=== PATIENT | female | born 1960 | race Caucasian/White ===

== ENCOUNTER 2017-10-29 15:50 | Outpatient (CLI) | payer BC, OTHER | END 2017-10-29 15:51 | disposition home or self-care (01) | LOC: BICMAMMO 15:50 | PROVIDERS: ATTEND Family Medicine | DX: Z12.31 Encounter for screening mammogram for malignant neoplasm of breast (principal); R92.1 Mammographic calcification found on diagnostic imaging of breast | CPT/HCPCS: 77063; 77067 ==

== ENCOUNTER 2018-05-28 11:19 | Emergency (ER) | payer BC, OTHER ==
--- NOTE | 2018-05-28 13:21 | ULT ---
ULTRASOUND WITH DOPPLER DUPLEX VENOUS LOWER EXTREMITY LEFT: HISTORY: 58-year-old female with left lower extremity pain and edema. TECHNIQUE: Color flow Doppler, spectral waveform analysis of pulsed Doppler, and esparza-scale imaging with corona freddie and augmentation, were used to evaluate the left common femoral, femoral, popliteal, posterior t ibial, and superficial femoral, veins; and the proximal portions of the profunda femoral and greater saphenous, veins. FINDINGS: There is normal compressibility, demonstration of blood flow by color Doppler and pulsed Doppler, and response to augmentation, in all interrogated veins. IMPRESSION: Negative. No deep vein thrombosis in the left lower extremity. jn[] POS: LYNNE
== END 2018-05-28 13:54 | disposition home or self-care (01) ==
LOC: ERS 11:19
DX: I83.92 Asymptomatic varicose veins of left lower extremity (principal); I49.9 Cardiac arrhythmia, unspecified; Z86.718 Personal history of other venous thrombosis and embolism

== ENCOUNTER 2018-12-20 15:57 | Outpatient (CLI) | payer BC, OTHER ==
--- NOTE | 2018-12-20 16:17 | MMO ---
Bilateral MAMMO Bilat Screen [facility]. CLINICAL HISTORY: Patient is 58 years old and is seen for screening. The patient has no family history of breast cancer. The patient has no personal history of cancer. VIEWS: The views performed were: bilateral craniocaudal with tomosynthesis and bilateral mediolateral oblique with tomosynthesis. FILMS COMPARED: The present examination has been compared to prior imaging studies performed at [facility] on 09/12/2014, 10/04/2015, 10/08/2016 and 10/29/2017. MAMMOGRAM FINDINGS: The breasts are heterogeneously dense, which could obscure a lesion on mammography. There are no suspicious masses, suspicious calcifications, or new areas of architectural distortion. IMPRESSION: THERE IS NO MAMMOGRAPHIC EVIDENCE OF MALIGNANCY. A ROUTINE FOLLOW-UP MAMMOGRAM IN 1 YEAR IS RECOMMENDED. THE RESULTS OF THIS EXAM WERE SENT TO THE PATIENT. ACR BI-RADS Category 1 - Negative MAMMOGRAPHY NOTE: 1. A negative mammogram report should not delay a biopsy if a dominant of clinically suspicious mass is present. 2. Approximately 10% to 15% of breast cancers are not detected by mammography. 3. Adenosis and dense breasts may obscure an underlying neoplasm. Reported by: ANANT FLEMING MD Electonically Signed: [id number]
== END 2018-12-20 15:58 | disposition home or self-care (01) ==
LOC: BICMAMMO 15:57
PROVIDERS: ATTEND Internal Medicine
DX: Z12.31 Encounter for screening mammogram for malignant neoplasm of breast (principal)
CPT/HCPCS: 77063; 77067

== ENCOUNTER 2019-12-30 07:58 | Outpatient (CLI) | payer BC, OTHER ==
--- NOTE | 2019-12-30 08:48 | MMO ---
Bilateral MAMMO Bilat Screen [facility]. CLINICAL HISTORY: Patient is 59 years old and is seen for screening. The patient has no family history of breast cancer. The patient has no personal history of cancer. VIEWS: The views performed were: bilateral craniocaudal with tomosynthesis; bilateral mediolateral oblique with tomosynthesis; and bilateral exaggerated craniocaudal. FILMS COMPARED: The present examination has been compared to prior imaging studies performed at [facility] on 10/04/2015, 10/08/2016, 10/29/2017 and 12/20/2018. This study has been interpreted with the assistance of computer-aided detection. MAMMOGRAM FINDINGS: There are scattered fibroglandular densities. There are stable benign appearing calcifications seen in both breasts. There are no suspicious masses, suspicious calcifications, or new areas of architectural distortion. IMPRESSION: THERE IS NO MAMMOGRAPHIC EVIDENCE OF MALIGNANCY. A ROUTINE FOLLOW-UP MAMMOGRAM IN 1 YEAR IS RECOMMENDED. THE RESULTS OF THIS EXAM WERE SENT TO THE PATIENT. ACR BI-RADS Category 2 - Benign finding MAMMOGRAPHY NOTE: 1. A negative mammogram report should not delay a biopsy if a dominant of clinically suspicious mass is present. 2. Approximately 10% to 15% of breast cancers are not detected by mammography. 3. Adenosis and dense breasts may obscure an underlying neoplasm. Reported by: MALIKA DEVI MD Electonically Signed: [id number]
== END 2019-12-30 07:59 | disposition home or self-care (01) ==
LOC: BICMAMMO 07:58
PROVIDERS: ATTEND Family Medicine
DX: Z12.31 Encounter for screening mammogram for malignant neoplasm of breast (principal)
CPT/HCPCS: 77063; 77067

== ENCOUNTER 2020-06-29 12:41 | Inpatient (IN) | payer BC, OTHER ==
[~2020-06-29 12:41] MED LIST: Iopamidol-370 76% 500 ML 1 ML ONE
[2020-06-29] MEDS ORDERED: Magnesium 2 GM/50 ML BAG (IN WATER) ONE (13:09)
[2020-06-29] MEDS ORDERED: Diltiazem 125 MG/25 ML ONE ×3 (13:09→13:19)
[2020-06-29] MEDS ORDERED: Digoxin 0.5 MG/2 ML AMP ONE (13:14)
[2020-06-29] MEDS ORDERED: Aspirin Chewable 81 MG TAB ONE (13:14)
--- NOTE | 2020-06-29 13:26 | RAD ---
Exam: Chest one view HISTORY:Dyspnea. Tachycardia. Comparison: 07/29/2015 FINDINGS: Cardiac silhouette: Normal Aorta: Unremarkable Pulmonary vessels: Normal Costophrenic angles: Bibasilar pleural effusions LUNGS: Bibasilar opacities Pneumothorax: None Osseous abnormalities: None IMPRESSION: Bibasilar pleural-parenchymal changes
[2020-06-29 13:28] LABS: #Basophils 0.1 thou/uL (0.0-0.2); #Eosinphils 0.1 thou/uL (0.0-0.7); #Lymphocytes 1.4 thou/uL (1.20-3.40); #Monocytes 0.6 thou/uL (0.11-0.59); #Neutrophils 3.6 thou/uL (1.40-6.50); %Eosinophils 2.3 % (0.0-10.0); %Lymphocytes 24.3 % (21.0-51.0); %Monocytes 9.7 % (0.0-10.0); %Neutrophils 62.7 % (42.0-75.0); Hemoglobin 13.2 g/dL (12.0-16.0); Mean Corpuscular HGB CONC 33.9 g/dL (32.0-36.0); Mean Corpuscular Hemoglobin 31.4 pg (27.0-31.0); Mean Corpuscular Volume 92.7 fL (78.0-98.0); Mean Platelet Volume 7.5 fL (7.4-10.4); Platelet Count 206 thou/uL (130-400); RBC Distribution Width 11.8 % (11.5-14.5); White Blood Cell (WBC) Count 5.7 thou/uL (4.8-10.8)
[2020-06-29 13:46] LABS: ALT (SGPT) 117 U/L (8-55); AST (SGOT) 64 U/L (5-34); Albumin 4.2 g/dL (3.5-5.0); Alkaline Phosphatase 117 U/L (40-110); Anion Gap 15 mmol/L (10-20); BUN (Urea Nitrogen) 9 mg/dL (9.8-20.1); Bilirubin, Total 0.5 mg/dL (0.2-1.2); CK (CPK) 96 U/L (29-168); Calc. Creatinine Clearance 0 mL/min (70-130); Calcium 9.3 mg/dL (7.8-10.44); Carbon Dioxide 21 mmol/L (22-29); Chloride 106 mmol/L (98-107); Globulin 3.5 g/dL (2.4-3.5); Glucose 116 mg/dL (70-105); Lipase 37 U/L (8-78); Potassium 3.3 mmol/L (3.5-5.1); Protein, Total 7.7 g/dL (6.0-8.3); Sodium 139 mmol/L (136-145)
[2020-06-29 13:50] LABS: CKMB 1.9 ng/mL (0-6.6)
[2020-06-29] MEDS ORDERED: Enoxaparin Sodium 80 MG/0.8 ML SYRINGE ONE (14:50)
--- NOTE | 2020-06-29 15:06 | CT ---
CT ANGIOGRAM CHEST WITH CONTRAST: 06/29/20 HISTORY: Chest pain. COMPARISON: Radiograph of chest same day. FINDINGS: CT angiogram chest performed after the intravenous administration of contrast. CT rendering provided. No proximal segmental pulmonary arterial filling defect. The pulmonary trunk and left and right main pulmonary arteries are essentially normal. Large bilateral layering pleural effusions. Mild compressi ve atelectasis of both lung bases. Mild interstitial thickening both upper lobes. 8 mm nodule right m iddle lobe. No abnormal pleural enhancement. No significant mediastinal adenopathy. Thoracic spine is intact. Sternum and manubrium are intact. Celiac trunk and severe mesenteric arteri es are patent. Healing right anterior 9th and 10th rib fractures. No acute displaced rib fracture. IMPRESSION: 1. No pulmonary embolism. 2. Large bilateral pleural effusions and mild pulmonary edema. 3. Healing right anterior 9th and 10th rib fractures. 4. 8 mm pulmonary nodule involving the pleura right middle lobe has not significantly grown sinc e 2012 indicating benignity. POS: HOME
[2020-06-29 15:50] LABS: SARS-CoV-2 NAA Rapid Test Not Detected (NotDetected)
--- NOTE | 2020-06-29 16:01 | PDOC.HHP ---
Hospitalist HPI Palpitations History of Present Illness: Ms. Foley is a 60F with a PMHx of a provoked DVT who presents to the ER for 3 days of weakness, malaise, and palpitations. Patient reports that she has felt fatigued run-down and at times short of breath. She has noticed a fluttering feeling in her chest occasionally. She denies any chest pain. Pt follows with Dr. Brito and has a history of brief episode of a-fib on a 30 day holter monitor. She is not on any anticoagulation. SHe denies any prior episodes to this. In the ER initial vital signs 137/81, 81, 94% on room air. EKG shows atrial fibrillation with rapid ventricular rate. Patient's heart rate initially in the 140s. Initial troponin 0 0.015. WBC 5.7 H/H 13.2/38.9. Sodium 139, potassium 3.3. AST/ALT 64/117, alk phos 117. D-dimer elevated CTA negative for pulmonary embolism. Chest x-ray did show mild bilateral pleural effusions and vascular congestion. Patient was started on 1 mg/kg of Lovenox in the emergency room. To control her rate she started on a diltiazem drip at 15, and also received a dose of digoxin. Allergies/Adverse Reactions: Allergy/AdvReac Type Severity Reaction Status Date / Time No Known Drug Allergies Allergy Verified 07/31/19 02:23 Comments: On home pantoprazole Past History: PMHx: Provoked DVT PSHx: Carpal tunnel surgery Endometriosis FHx: No pertinent family history Social: Denies tobacco, alcohol or drug use. Hospitalist HPI ROS Constitutional: reports: weakness, malaise. denies: fever, chills, sweats, other Eyes: denies: pain, vision change, conjunctivae inflammation, eyelid inflammation, redness, other ENT: denies: ear pain, ear discharge, nose pain, nose discharge, nose congestion, mouth pain, mouth swelling, throat pain, throat swelling, other Respiratory: reports: shortness of breath. denies: cough, dry, hemoptysis, SOB with excertion, pleuritic pain, sputum, wheezing, other Cardiovascular: reports: palpitations. denies: chest pain, orthopnea, paroxysma l noc. dyspnea, edema, light headedness, other Gastrointestinal: denies: nausea, vomiting, abdominal pain, diarrhea, constipation, melena, hematochezia, other Genitourinary: denies: dysuria, frequency, incontinence, hematuria, retention, other Musculoskeletal: denies: neck pain, shoulder pain, arm pain, back pain, hand pain, leg pain, foot pain, other Skin: denies: rash, lesions, shonda, bruising, other Neurological: denies: weakness, numbness, incoordination, change in speech, confusion, seizures, other Hospitalist Exam General Appearance: NAD, awake alert Eye: PERRL, anicteric sclera ENT: normocephalic atraumatic, no oropharyngeal lesions, moist mucosa Neck: supple, symmetric, no JVD, no thyromegaly, no lymphadenopathy, no carotid bruit Heart: no murmur, no gallops, no rubs, normal peripheral pulses Heart - other findings: Irregularly irregular Respiratory: CTAB, no wheezes, no rales, no ronchi, normal chest expansion, no tachypnea, normal percussion Gastrointestinal: soft, non-tender, non-distended, normal bowel sounds, no palpable masses, no hepatomegaly, no splenomegaly, no bruit Extremities: no cyanosis, no clubbing, no edema Skin: normal turgor, no lesions, no rashes Neurological: cranial nerve grossly intact, normal sensation to touch, no weakness, no focal deficits, no new deficit Musculoskeletal: normal tone, normal strength, no muscle wasting Psychiatric: normal affect, normal behavior, A&O x 3 Hospitalist Results Result Diagrams: 06/29/20 13:11 06/29/20 13:06 Lab results: Laboratory Last Values WBC 5.7 thou/uL (4.8-10.8) 06/29/20 13:11 RBC 4.20 mill/uL (4.20-5.40) 06/29/20 13:11 Hgb 13.2 g/dL (12.0-16.0) 06/29/20 13:11 Hct 38.9 % (36.0-47.0) 06/29/20 13:11 MCV 92.7 fL (78.0-98.0) 06/29/20 13:11 MCH 31.4 pg (27.0-31.0) H 06/29/20 13:11 MCHC 33.9 g/dL (32.0-36.0) 06/29/20 13:11 RDW 11.8 % (11.5-14.5) 06/29/20 13:11 Plt Count 206 thou/uL (130-400) 06/29/20 13:11 MPV 7.5 fL (7.4-10.4) 06/29/20 13:11 Neutrophils % 62.7 % (42.0-75.0) 06/29/20 13:11 Lymphocytes % 24.3 % (21.0-51.0) 06/29/20 13:11 Monocytes % 9.7 % (0.0-10.0) 06/29/20 13:11 Eosinophils % 2.3 % (0.0-10.0) 06/29/20 13:11 Basophils % 1.0 % (0.0-1.0) 06/29/20 13:11 Neutrophils # 3.6 thou/uL (1.40-6.50) 06/29/20 13:11 Lymphocytes # 1.4 thou/uL (1.20-3.40) 06/29/20 13:11 Monocytes # 0.6 thou/uL (0.11-0.59) H 06/29/20 13:11 Eosinophils # 0.1 thou/uL (0.0-0.7) 06/29/20 13:11 Basophils # 0.1 thou/uL (0.0-0.2) 06/29/20 13:11 D-Dimer 1.55 *mcg/mL (0.27-0.43) H 06/29/20 13:11 Sodium 139 mmol/L (136-145) 06/29/20 13:06 Potassium 3.3 mmol/L (3.5-5.1) L 06/29/20 13:06 Chloride 106 mmol/L (98-107) 06/29/20 13:06 Carbon Dioxide 21 mmol/L (22-29) L 06/29/20 13:06 Anion Gap 15 mmol/L (10-20) 06/29/20 13:06 BUN 9 mg/dL (9.8-20.1) L 06/29/20 13:06 Creatinine 0.86 mg/dL (0.6-1.1) 06/29/20 13:06 Estimated GFR (MDRD) 68 06/29/20 13:06 Glucose 116 mg/dL (70-105) H 06/29/20 13:06 Calcium 9.3 mg/dL (7.8-10.44) 06/29/20 13:06 Magnesium 2.0 mg/dL (1.6-2.6) 06/29/20 13:11 Total Bilirubin 0.5 mg/dL (0.2-1.2) 06/29/20 13:06 AST 64 U/L (5-34) H 06/29/20 13:06 ALT 117 U/L (8-55) H 06/29/20 13:06 Alkaline Phosphatase 117 U/L (40-110) H 06/29/20 13:06 Creatine Kinase 96 U/L (29-168) 06/29/20 13:06 CK-MB (CK-2) 1.9 ng/mL (0-6.6) 06/29/20 13:11 Troponin I 0.015 ng/mL (< 0.028) 06/29/20 13:11 B-Natriuretic Peptide 215.5 pg/mL (0-100) H 06/29/20 13:11 Serum Total Protein 7.7 g/dL (6.0-8.3) 06/29/20 13:06 Albumin 4.2 g/dL (3.5-5.0) 06/29/20 13:06 Globulin 3.5 g/dL (2.4-3.5) 06/29/20 13:06 Albumin/Globulin Ratio 1.2 g/dL (1.2-2.2) 06/29/20 13:06 Lipase 37 U/L (8-78) 06/29/20 13:06 Influenza A RNA INAAT Not Detected (NotDetected) 06/29/20 14:58 Influenza B RNA INAAT Not Detected (NotDetected) 06/29/20 14:58 SARS-CoV-2 Rap RNA(RT-PCR) Not Detected (NotDetected) 06/29/20 14:58 Hospitalist H&P A/P Plan: Atrial fibrillation with rapid ventricular rate Patient with history of atrial fibrillation not on anticoagulation or any rate control medicine. Follows with Dr. Delatorre. Patient's not been hospitalized for this previously. Patient has 3 days of weakness dyspnea and palpitations. Found to be in A. fib with ventricular rate in the 140s on presentation. Patient started on diltiazem drip in the emergency room and additionally received doses of digoxin to control her rate. Currently in the 80s to 90s. D- dimer elevated, CTA was negative for PE but did show small bilateral pleural effusions. Chest x-ray also with small bilateral pleural effusions and pulmonary vascular congestion. We will continue diltiazem drip, anticoagulation with Lovenox and consult cardiology. Plan Diltiazem drip Therapeutic Lovenox TSH, magnesium Telemetry monitoring Cardiology consult recommendations appreciated Bilateral pleural effusions Chest x-ray shows bilateral pleural effusions. Patient saturating well on room air and is in no respiratory distress. Suspect mild heart failure. Will pursue echocardiogram to further assess. Patient has no history of heart failure and is not on any home medications. Patient with mild lower extremity swelling on exam. No appreciable JVD. Will diurese with Lasix. Plan Echocardiogram Lasix 20 mg IV Telemetry monitoring Monitor respiratory status. Hypokalemia Potassium 3.3. Will replete and continue monitor. Will also check magnesium and maintain potassium above 4 and magnesium above 2. Transamanitis AST/ALT 64/117. Alk phos 117. No abdominal pain, N/V. Chronic diarrhea. Will obtain hepatitis panel and continue to trend. Chronic diarrhea Patient reports medical history of chronic intermittent diarrhea. Symptoms mildly improved on Protonix which he recently restarted. Advised patient to do a trial of lactose-free diet and follow-up with her primary care provider. We will continue Protonix during admission. DVT prophylaxistherapeutic Lovenox Full code Case discussed with attending physician, Dr. Latif.
[2020-06-29] MEDS ORDERED: Acetaminophen 650 MG Suppository PR PRN (16:08)
[2020-06-29] MEDS ORDERED: Acetaminophen 325 MG TAB PO PRN (16:08)
[2020-06-29] MEDS ORDERED: Furosemide 20 MG/2 ML VIAL SLOW IVP SCH (16:30)
[2020-06-29 16:45] LABS: Hemoglobin A1c 5.6 % (4.0-6.0)
[2020-06-29 16:53] LABS: Cardiac Risk 2.5 (Less than 4.5)
[2020-06-29] MEDS ORDERED: Potassium Chloride 20 MEQ TAB PO SCH (17:00)
[2020-06-29 17:17] LABS: CKMB 1.9 ng/mL (0-6.6)
[2020-06-29 19:08] VITALS: BMI 23.0
[2020-06-29] MEDS: Metoprolol Tartrate 25 MG TAB PO SCH (20:59)
[2020-06-29] MEDS: Diltiazem 125 MG in Sodium Chloride 0.9% 100 ML IVPB SCH (21:00)
[2020-06-29] MEDS ORDERED: Metoprolol Tartrate 25 MG TAB PO SCH (21:00)
[2020-06-29 22:57] LABS: HBCM Index 0.16 S/CO (0-0.79); HBSAg Index 0.24 S/CO (0-0.99); Hep A IgM AB Non-Reactive (NonReactive); Hep A IgM S/CO 0.12 S/CO (0-0.79); Hep B Surf Ag Non-Reactive S/CO (NonReactive); Hep C IgG Ab Non-Reactive (NonReactive); Hep C Index 0.47 S/CO (0-0.79); Hepatitis B Core IgM Abs Non-Reactive (NonReactive)
[2020-06-30 04:34] LABS: #Basophils 0.1 thou/uL (0.0-0.2); #Eosinphils 0.3 thou/uL (0.0-0.7); #Lymphocytes 1.5 thou/uL (1.20-3.40); #Monocytes 0.5 thou/uL (0.11-0.59); #Neutrophils 2.2 thou/uL (1.40-6.50); %Basophils 1.5 % (0.0-1.0); %Eosinophils 6.1 % (0.0-10.0); %Lymphocytes 32.9 % (21.0-51.0); %Monocytes 10.9 % (0.0-10.0); %Neutrophils 48.6 % (42.0-75.0); Hemoglobin 12.1 g/dL (12.0-16.0); Mean Corpuscular HGB CONC 32.9 g/dL (32.0-36.0); Mean Corpuscular Hemoglobin 30.1 pg (27.0-31.0); Mean Corpuscular Volume 91.5 fL (78.0-98.0); Mean Platelet Volume 7.2 fL (7.4-10.4); Platelet Count 218 thou/uL (130-400); Red Blood Cell (RBC) Count 4.02 mill/uL (4.20-5.40); White Blood Cell (WBC) Count 4.5 thou/uL (4.8-10.8)
[2020-06-30] MEDS: Diltiazem 125 MG in Sodium Chloride 0.9% 100 ML IVPB SCH (04:42)
[2020-06-30 04:46] LABS: Anion Gap 11 mmol/L (10-20); BUN (Urea Nitrogen) 8 mg/dL (9.8-20.1); Calc. Creatinine Clearance 86 mL/min (70-130); Calcium 8.7 mg/dL (7.8-10.44); Carbon Dioxide 26 mmol/L (22-29); Chloride 109 mmol/L (98-107); Glucose 99 mg/dL (70-105); Potassium 3.8 mmol/L (3.5-5.1); Sodium 142 mmol/L (136-145)
[2020-06-30] MEDS: Furosemide 20 MG/2 ML VIAL SLOW IVP SCH (09:04)
[2020-06-30] MEDS: Metoprolol Tartrate 25 MG TAB PO SCH ×2 (09:04→21:14)
--- NOTE | 2020-06-30 10:55 | PDOC.HOSPP ---
- Subjective Encounter Date: 06/30/20 Encounter Time: 08:15 Subjective: Patient reports she feels better than yesterday; denies overnight events - Objective Vital Signs & Weight: Vital Signs (12 hours) Temp Pulse Resp BP Pulse Ox 06/30/20 07:27 98.1 F 67 18 118/64 97 06/30/20 04:30 73 106/63 06/30/20 04:00 98.2 F 72 18 94 L Weight Weight 72.7 kg I&O: 06/29/20 06/30/20 07/01/20 06:59 06:59 06:59 Intake Total 223 Output Total 1500 Balance -1277 Result Diagrams: 06/30/20 04:13 06/30/20 04:13 Hospitalist ROS - Review of Systems Constitutional: denies: fever, chills, sweats, weakness, malaise, other Eyes: denies: pain, vision change, conjunctivae inflammation, eyelid inflammation, redness, other ENT: denies: ear pain, ear discharge, nose pain, nose discharge, nose congestion, mouth pain, mouth swelling, throat pain, throat swelling, other Respiratory: denies: cough, dry, shortness of breath, hemoptysis, SOB with excertion, pleuritic pain, sputum, wheezing, other Cardiovascular: reports: palpitations Gastrointestinal: reports: diarrhea Genitourinary: denies: dysuria, frequency, incontinence, hematuria, retention, other Musculoskeletal: denies: neck pain, shoulder pain, arm pain, back pain, hand pain, leg pain, foot pain, other Skin: denies: rash, lesions, shonda, bruising, other Neurological: denies: weakness, numbness, incoordination, change in speech, confusion, seizures, other - Medication Medications: Active Medications Generic Name Dose Route Start Last Admin Trade Name Freq PRN Reason Stop Dose Admin Acetaminophen 650 mg 06/29/20 16:08 06/29/20 20:59 Acetaminophen 325 Mg Tab PO 650 mg Q4H PRN Administration Headache/Fever/Mild Pain (1-3) Furosemide 20 mg 06/30/20 09:00 06/30/20 09:04 Furosemide 20 Mg/2 Ml Vial SLOW IVP 20 mg DAILY ALICJA Administration Diltiazem HCl 125 mg/ Sodium 125 mls @ 15 mls/hr 06/29/20 16:15 06/30/20 04:42 Chloride IVPB 125 mls INF ALICJA Administration Protocol 15 MG/HR Metoprolol Tartrate 25 mg 06/29/20 21:00 06/30/20 09:04 Metoprolol Tartrate 25 Mg Tab PO 25 mg BID ALICJA Administration Pantoprazole Sodium 40 mg 06/30/20 09:00 06/30/20 09:04 Pantoprazole 40 Mg Tab PO 40 mg DAILY ALICJA Administration Hospitalist Exam Vitals: Vital Signs (12 hours) Temp Pulse Resp BP Pulse Ox 06/30/20 07:27 98.1 F 67 18 118/64 97 06/30/20 04:30 73 106/63 06/30/20 04:00 98.2 F 72 18 94 L Weight Weight 72.7 kg General Appearance: NAD, awake alert Eye: PERRL ENT: normocephalic atraumatic Neck: supple Heart: RRR, normal peripheral pulses Respiratory: normal chest expansion Gastrointestinal: soft, non-tender Extremities: no edema Skin: normal turgor Neurological: normal sensation to touch Musculoskeletal: normal tone Psychiatric: normal affect, A&O x 3 Hosp A/P (1) Chronic diarrhea Code(s): K52.9 - NONINFECTIVE GASTROENTERITIS AND COLITIS, UNSPECIFIED Status: Chronic (2) Hypokalemia Code(s): E87.6 - HYPOKALEMIA Status: Resolved (3) Atrial fibrillation with RVR Code(s): I48.91 - UNSPECIFIED ATRIAL FIBRILLATION Status: Acute (4) Pleural effusion Code(s): J90 - PLEURAL EFFUSION, NOT ELSEWHERE CLASSIFIED Status: Acute - Plan Plan: Atrial fibrillation with rapid ventricular rate -Tele monitoring -Cardiology consult; sees Dr. 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 Await recommendations -Rate controlled on Cardizem drip -Lovenox -Mag/Calcium/TSH WNL; Troponin trend- 2/3 were indeterminate -Will repeat labs in AM Bilateral pleural effusions -Echo pending -Lasix 20mg IVP daily Hypokalemia Resolved Will recheck labs in AM and continue to monitor. Transamanitis AST/ALT 64/117. Alk phos 117 on admission. No abdominal pain, N/V. Chronic diarrhea. Hepatitis panel pending and change chem to CMP daily to monitor. Chronic diarrhea Patient reports medical history of chronic intermittent diarrhea. Symptoms mildly improved on Protonix which he recently restarted. Advised patient to do a trial of lactose-free diet and follow-up with her primary care provider. We will continue Protonix during admission. Discussed need for possible f/u with GI as an outpatient. DVT prophylaxistherapeutic Lovenox Full code Case discussed with attending physician, Gabo
--- NOTE | 2020-06-30 17:19 | CON ---
DATE OF CONSULTATION: REASON FOR CONSULTATION: Atrial flutter. HISTORY OF PRESENT ILLNESS: Ms. Foley is a 60-year-old female who was seen and evaluated in the past. She was last seen in 2019. She was being evaluated for paroxysmal atrial fibrillation. Her CHADS-VASc score at the time was 1 and was based on her being a female. We decided to proceed with aspirin only. She states in the interim, she has not taken aspirin. She recently developed malaise, fatigue, and weakness. This started on Thursday prior to admission. She also had associated chest pressure during the episode. She was seen and evaluated in the emergency room, where her heart rate was in the 140s. She was placed on IV Cardizem and heart rate now in the 70s. She feels much better. 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 MEDICATIONS: Include none. PAST SURGICAL HISTORY: Carpal tunnel release, disk removal, venogram. SOCIAL HISTORY: No current tobacco or alcohol use. ALLERGIES: NONE. REVIEW OF SYSTEMS: A 10-point review of systems is reviewed as above, otherwise negative. PHYSICAL EXAMINATION: GENERAL: Patient is a pleasant female who is in no acute distress. The patient appears their stated age. VITAL SIGNS: Blood pressure 108/61, pulse 75, temperature 98.1. NEUROLOGIC: The patient is alert and oriented x3 with no focal neurologic deficits. HEENT: Sclerae without icterus. Mouth has moist mucous membranes with normal pallor. NECK: No JVD. Carotid upstroke brisk. No bruits bilaterally. LUNGS: Clear to auscultation with unlabored respirations. BACK: No scoliosis or kyphosis. CARDIAC: Regular rate and rhythm with normal S1 and S2. No S3 or S4 noted. No significant rubs, murmurs, thrills, or gallops noted throughout the precordium. PMI is not displaced. There is no parasternal heave. ABDOMEN: Soft, nontender, nondistended. No peritoneal signs present. No hepatosplenomegaly. No abnormal striae. EXTREMITIES: 2+ femoral and 2+ dorsalis pedis pulses. No cyanosis, clubbing, or edema. SKIN: No gross abnormalities. PERTINENT LABORATORY DATA: Hemoglobin 12.1, hematocrit 36.8, platelet count of 218. Creatinine 0.81. Peak troponin 0.118. Echo Doppler shows LVEF 40% to 45% and may be underestimated due to atrial flutter. IMPRESSION: 1. Atrial flutter. 2. Paroxysmal atrial fibrillation. 3. Mildly elevated troponin. RECOMMENDATIONS: We will recommend continued rate control. She is still on 50 mg IV Cardizem. Discussed cardioversion and NICHELLE with the patient if she is not rate controlled in a.m. I discussed the procedure in full detail. Risks include, but not limited to the following: Damage to teeth, mouth, back of throat; damage to esophagus as well as reaction to medication. All of her questions were answered. I also discussed cardioversion including stroke, need for temporary cardioversion, burn to skin, need for temporary pacemaker, failed procedure, or need for repeat procedure. All questions were answered. Given the above, the patient agreed to proceed with the above procedure. Job ID: [id number]
[2020-06-30] MEDS ORDERED: Melatonin 3 MG TAB PO SCH (21:30)
[2020-07-01 04:36] LABS: #Eosinphils 0.3 thou/uL (0.0-0.7); #Lymphocytes 1.6 thou/uL (1.20-3.40); #Monocytes 0.7 thou/uL (0.11-0.59); #Neutrophils 3.6 thou/uL (1.40-6.50); %Basophils 0.7 % (0.0-1.0); %Eosinophils 5.3 % (0.0-10.0); %Lymphocytes 25.5 % (21.0-51.0); %Monocytes 10.8 % (0.0-10.0); %Neutrophils 57.6 % (42.0-75.0); Hemoglobin 12.5 g/dL (12.0-16.0); Mean Corpuscular HGB CONC 33.6 g/dL (32.0-36.0); Mean Corpuscular Hemoglobin 30.5 pg (27.0-31.0); Mean Corpuscular Volume 90.8 fL (78.0-98.0); Mean Platelet Volume 7.4 fL (7.4-10.4); Platelet Count 246 thou/uL (130-400); RBC Distribution Width 11.9 % (11.5-14.5); White Blood Cell (WBC) Count 6.2 thou/uL (4.8-10.8)
[2020-07-01 05:11] LABS: ALT (SGPT) 75 U/L (8-55); AST (SGOT) 37 U/L (5-34); Albumin 3.6 g/dL (3.5-5.0); Alkaline Phosphatase 90 U/L (40-110); Anion Gap 13 mmol/L (10-20); BUN (Urea Nitrogen) 10 mg/dL (9.8-20.1); Bilirubin, Total 0.7 mg/dL (0.2-1.2); Calc. Creatinine Clearance 80 mL/min (70-130); Calcium 8.7 mg/dL (7.8-10.44); Carbon Dioxide 23 mmol/L (22-29); Chloride 108 mmol/L (98-107); Globulin 3.1 g/dL (2.4-3.5); Glucose 104 mg/dL (70-105); Potassium 3.7 mmol/L (3.5-5.1); Protein, Total 6.7 g/dL (6.0-8.3); Sodium 140 mmol/L (136-145)
--- NOTE | 2020-07-01 07:36 | PDOC.HOSPP ---
- Subjective Encounter Date: 07/01/20 Encounter Time: 07:35 Subjective: Patient sitting up in bed watching TV. Patient alert and oriented, answers questions appropriately. Patient states she had an uneventful night and states she slept well with Melatonin that was administered. Denies any pain at time of visit. - Objective Vital Signs & Weight: Vital Signs (12 hours) Temp Pulse Resp BP Pulse Ox 07/01/20 07:26 97.5 F L 75 14 111/57 L 96 07/01/20 04:00 99 F 72 24 H 98/59 L 91 L 07/01/20 00:00 74 103/55 L 06/30/20 20:00 98.6 F 76 20 108/56 L 93 L Weight Admit Weight 160 lb 4.416 oz Weight 160 lb 4.416 oz I&O: 06/30/20 07/01/20 07/02/20 06:59 06:59 06:59 Intake Total 223 982.5 Output Total 1500 1600 Balance -1277 -617.5 Result Diagrams: 07/01/20 03:55 07/01/20 03:55 Hospitalist ROS - Review of Systems Constitutional: denies: fever, chills, sweats, weakness, malaise Eyes: denies: pain, vision change, conjunctivae inflammation, eyelid inflammation, redness ENT: denies: ear pain, ear discharge, nose pain, nose discharge, nose congestion, mouth pain, mouth swelling, throat pain, throat swelling Respiratory: denies: cough, dry, shortness of breath, hemoptysis, SOB with exce rtion, pleuritic pain, sputum, wheezing Cardiovascular: denies: chest pain, palpitations, orthopnea, paroxysmal noc. dyspnea, edema, light headedness Gastrointestinal: denies: nausea, vomiting, abdominal pain, diarrhea, constipation, melena, hematochezia Genitourinary: denies: dysuria, frequency, incontinence, hematuria, retention Musculoskeletal: denies: neck pain, shoulder pain, arm pain, back pain, hand pain, leg pain, foot pain, other Skin: denies: rash, lesions, shonda, bruising Neurological: denies: weakness, numbness, incoordination, change in speech, confusion, seizures All other systems reviewed; all pertinent +/- noted in HPI/Subj - Medication Medications: Active Medications Generic Name Dose Route Start Last Admin Trade Name Freq PRN Reason Stop Dose Admin Acetaminophen 650 mg 06/29/20 16:08 06/29/20 20:59 Acetaminophen 325 Mg Tab PO 650 mg Q4H PRN Administration Headache/Fever/Mild Pain (1-3) Furosemide 20 mg 06/30/20 09:00 06/30/20 09:04 Furosemide 20 Mg/2 Ml Vial SLOW IVP 20 mg DAILY ALICJA Administration Diltiazem HCl 125 mg/ Sodium 125 mls @ 2.5 mls/hr 06/29/20 16:15 06/30/20 04:42 Chloride IVPB 125 mls INF ALICJA Administration Protocol Metoprolol Tartrate 25 mg 06/29/20 21:00 06/30/20 21:14 Metoprolol Tartrate 25 Mg Tab PO 25 mg BID ALICJA Administration Pantoprazole Sodium 40 mg 06/30/20 09:00 06/30/20 09:04 Pantoprazole 40 Mg Tab PO 40 mg DAILY ALICJA Administration Hospitalist Exam Vitals: Vital Signs (12 hours) Temp Pulse Resp BP Pulse Ox 07/01/20 07:26 97.5 F L 75 14 111/57 L 96 07/01/20 04:00 99 F 72 24 H 98/59 L 91 L 07/01/20 00:00 74 103/55 L 06/30/20 20:00 98.6 F 76 20 108/56 L 93 L Weight Admit Weight 160 lb 4.416 oz Weight 160 lb 4.416 oz General Appearance: NAD, awake alert Eye: PERRL ENT: normocephalic atraumatic, moist mucosa Neck: supple, symmetric, no lymphadenopathy Heart: RRR, normal peripheral pulses Respiratory: CTAB, normal chest expansion, no tachypnea Gastrointestinal: soft, non-tender, normal bowel sounds Extremities: no edema Skin: normal turgor, no rashes Neurological: normal sensation to touch Musculoskeletal: normal tone Psychiatric: normal affect, normal behavior, A&O x 3 Hosp A/P (1) Atrial fibrillation with RVR Code(s): I48.91 - UNSPECIFIED ATRIAL FIBRILLATION Status: Acute (2) Pleural effusion Code(s): J90 - PLEURAL EFFUSION, NOT ELSEWHERE CLASSIFIED Status: Acute (3) Chronic diarrhea Code(s): K52.9 - NONINFECTIVE GASTROENTERITIS AND COLITIS, UNSPECIFIED Status: Chronic (4) Hypokalemia Code(s): E87.6 - HYPOKALEMIA Status: Resolved (5) Chest pain Code(s): R07.9 - CHEST PAIN, UNSPECIFIED Status: Acute - Plan old records reviewed/req, DVT proph w/lovenox Plan: 60-year-old female with a history of atrial fibrillation with RVR, Pleural effusions bilaterally, hyperkalemia, abnormal LFTs, chronic diarrhea. Atrial fibrillation with rapid ventricular rate -Tele monitoring -Cardiology consult - Dr. Delatorre saw patient on 06/30/20, discussed possible cardioversion and NICHELLE if rate was not controlled this morning; sees Dr. Delatorre as an outpatient and he is application development liaison this w/e. -Rate controlled on Cardizem drip, drip currently at 2.5 mg/hr. -Lovenox -Mag/Calcium/TSH WNL; Troponin trend- 06/13 were indeterminate -Stress test ordered. Bilateral pleural effusions -Echo showed LVEF 40-45% and may be underestimated due to aflutter. -Lasix 20mg IVP daily Hypokalemia -Resolved -Repeat labs show normal potassium at 3.7. Will continue to monitor. Transamanitis -Admission AST/ALT 64/117, repeat CMP showed improvement with AST/ALT at 37/75. Alk phos 117 on admission, down to 90 on repeat CMP. No abdominal pain, N/V. Chronic diarrhea. Negative Hepatitis panel and change chem to CMP daily to monitor. Chronic diarrhea -Patient reports medical history of chronic intermittent diarrhea. Symptoms mildly improved on Protonix which he recently restarted. Advised patient to do a trial of lactose-free diet and follow-up with her primary care provider. We will continue Protonix during admission. Discussed need for possible f/u with GI as an outpatient. DVT prophylaxistherapeutic Lovenox Full code Case discussed with attending physician, Gabo
[2020-07-01] MEDS: Enoxaparin Sodium 80 MG/0.8 ML SYRINGE SC SCH ×2 (09:11→20:41)
[2020-07-01] MEDS: Furosemide 20 MG/2 ML VIAL SLOW IVP SCH ×2 (09:11→09:47)
[2020-07-01] MEDS: Metoprolol Tartrate 25 MG TAB PO SCH ×2 (09:11→20:40)
[2020-07-01] MEDS: Diltiazem 125 MG in Sodium Chloride 0.9% 100 ML IVPB SCH (12:13)
--- NOTE | 2020-07-01 12:51 | PDOC.CPN ---
- Subjective Date: 07/01/20 Time: 12:00 Interval history: Feels ok. No overnight events and no complaints. - Review of Systems General: denies: fever/chills, weight/appetite/sleep changes, night sweats, fatigue Respiratory: denies: cough, congestion, shortness of breath, exercise intolerance Cardiovascular: denies: chest pain, palpitation, edema, paroxysmal nocturnal dyspnea, orthopnea Gastrointestinal: denies: nausea, vomiting, diarrhea, constipation, abd pain, GI bleeding Musculoskeletal: denies: pain, tenderness, stiffness, swelling, arthritis/arth ralgias Neurological: denies: numbness, syncope, seizure, weakness - Objective Allergies/Adverse Reactions: Allergies Allergy/AdvReac Type Severity Reaction Status Date / Time No Known Drug Allergies Allergy Verified 07/31/19 02:23 Visit Medications: Current Medications Acetaminophen (Acetaminophen 325 Mg Tab) 650 mg PO Q4H PRN PRN Reason: Headache/Fever/Mild Pain (1-3) Last Admin: 06/29/20 20:59 Dose: 650 mg Documented by: Acetaminophen (Acetaminophen 650 Mg Suppository) 650 mg OR Q4H PRN PRN Reason: Headache/Fever/Mild Pain (1-3) Diltiazem HCl (Diltiazem Hcl Cd 180 Mg Capsule) 180 mg PO DAILY [facility] Last Admin: 07/01/20 09:11 Dose: 180 mg Documented by: Enoxaparin Sodium (Enoxaparin Sodium 80 Mg/0.8 Ml Syringe) 80 mg SC 0900,2100 [facility] Last Admin: 07/01/20 09:11 Dose: 80 mg Documented by: Furosemide (Furosemide 40 Mg/4 Ml Vial) 40 mg SLOW IVP DAILY [facility] Diltiazem HCl 125 mg/ Sodium (Chloride) 125 mls @ 2.5 mls/hr IVPB INF [facility]; Protocol Last Admin: 07/01/20 12:13 Dose: 125 mls Documented by: Metoprolol Tartrate (Metoprolol Tartrate 25 Mg Tab) 25 mg PO BID [facility] Last Admin: 07/01/20 09:11 Dose: 25 mg Documented by: Pantoprazole Sodium (Pantoprazole 40 Mg Tab) 40 mg PO DAILY [facility] Last Admin: 07/01/20 09:11 Dose: 40 mg Documented by: Sodium Chloride (Flush - Normal Saline 10 Ml Syringe) 10 ml IVF PRN PRN PRN Reason: Saline Flush Vital Signs & Weight: Vital Signs Temp Pulse Resp BP Pulse Ox 07/01/20 12:10 98.5 F 75 14 115/59 L 94 L 07/01/20 07:26 97.5 F L 75 14 111/57 L 96 07/01/20 04:00 99 F 72 24 H 98/59 L 91 L Admit Weight 160 lb 4.416 oz Weight 160 lb 4.416 oz - Physical Exam General: alert & oriented x3, appears well, no apparent distress HEENT: mucus membranes moist Neck: supple neck Cardiac: regular rate and rhythm Lungs: normal exam, decreased breath sounds Neuro: grossly intact Abdomen: soft Extremities: no clubbing, no edema Skin: clear - Labs Result Diagrams: 07/02/20 03:42 07/02/20 03:42 Troponin/CKMB CK-MB (CK-2) 1.9 ng/mL (0-6.6) 06/29/20 16:27 Troponin I 0.174 ng/mL (< 0.028) H 06/29/20 19:08 - Assessment/Plan Assessment/Plan: 1. Atrial Flutter 2. Bilateral pleural effusions 3. CP associated with RVR Patient improved. Stable rate on cardizem gtt and remains in flutter. Will keep NPO for EP tomorrow. Stress today as she is already NPO and had CP associated with arrhythmia. [id number]/01 Met with pt. If stress test in am WNL, ok to DC with OP fu and EP consult for ablation. If stress +, rec angio.
[2020-07-01] MEDS ORDERED: Melatonin 3 MG TAB PO PRN (20:29)
[2020-07-02 04:25] LABS: #Basophils 0.1 thou/uL (0.0-0.2); #Eosinphils 0.4 thou/uL (0.0-0.7); #Lymphocytes 1.8 thou/uL (1.20-3.40); #Monocytes 0.8 thou/uL (0.11-0.59); #Neutrophils 2.5 thou/uL (1.40-6.50); %Basophils 1.6 % (0.0-1.0); %Eosinophils 6.7 % (0.0-10.0); %Lymphocytes 32.6 % (21.0-51.0); %Monocytes 13.8 % (0.0-10.0); %Neutrophils 45.3 % (42.0-75.0); Hemoglobin 12.3 g/dL (12.0-16.0); Mean Corpuscular HGB CONC 33.4 g/dL (32.0-36.0); Mean Corpuscular Hemoglobin 30.2 pg (27.0-31.0); Mean Corpuscular Volume 90.3 fL (78.0-98.0); Mean Platelet Volume 7.3 fL (7.4-10.4); Platelet Count 217 thou/uL (130-400); RBC Distribution Width 11.8 % (11.5-14.5); Red Blood Cell (RBC) Count 4.06 mill/uL (4.20-5.40); White Blood Cell (WBC) Count 5.5 thou/uL (4.8-10.8)
[2020-07-02 04:48] LABS: ALT (SGPT) 59 U/L (8-55); AST (SGOT) 27 U/L (5-34); Albumin 3.5 g/dL (3.5-5.0); Alkaline Phosphatase 94 U/L (40-110); Anion Gap 11 mmol/L (10-20); BUN (Urea Nitrogen) 13 mg/dL (9.8-20.1); Bilirubin, Total 0.7 mg/dL (0.2-1.2); Calc. Creatinine Clearance 75 mL/min (70-130); Calcium 8.9 mg/dL (7.8-10.44); Carbon Dioxide 26 mmol/L (22-29); Chloride 105 mmol/L (98-107); Globulin 3.1 g/dL (2.4-3.5); Glucose 98 mg/dL (70-105); Potassium 3.5 mmol/L (3.5-5.1); Protein, Total 6.6 g/dL (6.0-8.3); Sodium 138 mmol/L (136-145)
[2020-07-02] MEDS ORDERED: Furosemide 40 MG/4 ML VIAL SLOW IVP SCH (09:00)
[2020-07-02] MEDS ORDERED: Regadenoson 0.4 MG/5 ML SYRINGE ONE (09:28)
[2020-07-02] MEDS ORDERED: PROPOFOL 200 MG/20 ML VIAL ONE (10:35)
[2020-07-02] MEDS: Metoprolol Tartrate 25 MG TAB PO SCH ×2 (11:08→20:03)
[2020-07-02] MEDS ORDERED: Enoxaparin Sodium 40 MG/0.4 ML SYRINGE ONE (11:44)
[2020-07-02] MEDS ORDERED: PROPOFOL 20 ML ONE (11:53)
--- NOTE | 2020-07-02 15:26 | NM ---
EXAM: CARDIAC SPECT HISTORY: Chest pain, atrial fibrillation, flutter TECHNIQUE: A myocardial perfusion scan was performed using the single isotope 2 day protocol with hermilo hnetium 99m sestamibi. [27 mCi] was injected intravenously for the rest exam and 26 mCifor the stress study. Pharmacologic stress with Lexiscan was monitored and interpreted by the nurse practitioner FINDINGS: Homogeneous tracer distribution is seen in the myocardial segments on stress and rest image s without fixed or reversible defects. Gated SPECT LVEF: 58% Wall motion exam: Normal IMPRESSION: Normal myocardial perfusion scan
[2020-07-02 20:28] VITALS: BP 115/60; TEMP 97.8
--- NOTE | 2020-07-03 05:32 | OP ---
DATE OF PROCEDURE: 07/02/2020 PRE PROCEDURE DIAGNOSIS: Atrial flutter. POST PROCEDURE DIAGNOSIS: Sinus rhythm. PROCEDURE: Synchronized cardioversion. Please see procedure note during NICHELLE. Conscious sedation performed with propofol. Cardioversion performed successfully x1 in a synchronized fashion at 150 joules. IMPRESSION: Successful synchronized cardioversion. Job ID: [id number]
--- NOTE | 2020-07-03 06:43 | OP ---
DATE OF PROCEDURE: 07/02/2020 PREPROCEDURE DIAGNOSIS: Atrial flutter. POSTPROCEDURE DIAGNOSIS: Sinus rhythm. PROCEDURE PERFORMED: NICHELLE. The patient initially went down for a noninvasive stress test. Heart rate was in the 140s. This could not be performed. I decided to proceed with NICHELLE with cardioversion. I discussed procedure in full detail with Tim Foley, risks include but not limited to the following: Damage to teeth, mouth, back of throat; damage to esophagus, as well as reaction to medication causing aspiration pneumonia. Also discussed the risks of cardioversion including burned skin, failed cardioversion, low risk of CVA, in addition to failed cardioversion, need for repeat cardioversion. All questions were answered. Given the above, the patient agreed to proceed with above procedure. Conscious sedation performed with propofol. The probe passed easily into the esophagus. The left atrial appendage well visualized. Velocities were greater than 50 cm/second. No thrombus present. IMPRESSION: No thrombus present in the left atrial appendage. Job ID: [id number]
--- NOTE | 2020-07-03 22:11 | EKG ---
Test Reason : POST NICHELLE/CARDIOVERSI Blood Pressure : / mmHG Vent. Rate : 078 BPM Atrial Rate : 078 BPM P-R Int : 142 ms QRS Dur : 086 ms QT Int : 402 ms P-R-T Axes : 064 023 069 degrees QTc Int : 458 ms Normal sinus rhythm Normal ECG When compared with ECG of 29-JUN-2020 12:57, (Unconfirmed) Sinus rhythm has replaced Atrial flutter Vent. rate has decreased BY 76 BPM QRS duration has decreased Minimal criteria for Septal infarct are no longer Present Nonspecific T wave abnormality no longer evident in Inferior leads T wave inversion no longer evident in Anterior leads Confirmed by Haylee DVEI ([id number]) on 07/03/2020 10:11:19 PM Referred By: [email or web address] Confirmed By:Haylee DEVI
== END 2020-07-02 20:23 | disposition home or self-care (01) | DRG 308 ==
LOC: ERS 12:41 → 2NO 15:22
PROVIDERS: ADMIT Internal Medicine; ATTEND Internal Medicine
PROC: 5A2204Z Restoration of Cardiac Rhythm, Single (ICD-10-PCS; principal; 2020-07-02)
PROC: B24BZZ4 Ultrasonography of Heart with Aorta, Transesophageal (ICD-10-PCS; 2020-07-02)
DX: I48.92 Unspecified atrial flutter (principal); I50.23 Acute on chronic systolic (congestive) heart failure; J90 Pleural effusion, not elsewhere classified; I48.0 Paroxysmal atrial fibrillation; E87.6 Hypokalemia; R07.9 Chest pain, unspecified; R74.01 Elevation of levels of liver transaminase levels; R77.8 Other specified abnormalities of plasma proteins; K52.9 Noninfective gastroenteritis and colitis, unspecified; Z86.718 Personal history of other venous thrombosis and embolism; Z79.899 Other long term (current) drug therapy; Z98.890 Other specified postprocedural states; Z20.822 Contact with and (suspected) exposure to COVID-19
CPT/HCPCS: 0240U; 36415; 71045; 71275; 78452; 80048; 80053; 80061; 80074; 82550; 82553; 83036; 83690; 83735; 83880; 84443; 84484; 85025; 85379; 87040; 92960; 93005; 93010; 93017; 93306; 93312; 96365; 96366; 96367; 96372; 96375; 96376; A9500; J1160; J1650; J1940; J2704; J2785; J3475; J3490; Q9967

== ENCOUNTER 2020-08-13 13:28 | Outpatient (CLI) | payer BC, OTHER ==
[2020-08-13 13:54] LABS: Hemoglobin 12.2 g/dL (12.0-15.5); Mean Corpuscular HGB CONC 31.7 g/dL (32.0-36.0); Mean Corpuscular Hemoglobin 29.2 pg (27.0-33.0); Mean Corpuscular Volume 92.1 fl (81.6-98.3); Mean Platelet Volume 9.6 fl (7.4-10.4); Platelet Count 219 10x3/uL (150-450); RBC Distribution Width 12.4 % (11.5-14.5); Red Blood Cell (RBC) Count 4.18 10x6/uL (3.90-5.03); White Blood Cell (WBC) Count 5.6 10x3/uL (3.5-10.5)
[2020-08-13 14:05] LABS: Anion Gap 11 mmol/L (10-20); BUN (Urea Nitrogen) 15 mg/dL (9.8-20.1); Calc. Creatinine Clearance 0 mL/min (70-130); Calcium 9.2 mg/dL (7.8-10.44); Carbon Dioxide 29 mmol/L (22-29); Chloride 103 mmol/L (98-107); Glucose 82 mg/dL (70-105); Potassium 4.1 mmol/L (3.5-5.1); Sodium 139 mmol/L (136-145)
[2020-08-13 14:53] LABS: INR-International Normal Ratio 0.9; Prothrombin Time 10.5 sec (9.5-12.1)
[2020-08-14 05:52] LABS: SARS-CoV-2 PCR by NAA Not Detected (NotDetected)
== END 2020-08-13 13:29 | disposition home or self-care (01) ==
LOC: LABBT 13:28
PROVIDERS: ATTEND Internal Medicine Cardiovascular Disease
DX: Z01.812 Encounter for preprocedural laboratory examination (principal); I48.0 Paroxysmal atrial fibrillation; Z20.822 Contact with and (suspected) exposure to COVID-19
CPT/HCPCS: 80048; 85027; 85610; 87635; U0003; U0005

== ENCOUNTER 2020-08-16 05:55 | Day surgery (SDC) | payer BC, OTHER ==
[2020-08-15 11:07] VITALS: BMI 22.4
[2020-08-16] MEDS ORDERED: Heparin 10,000 UNITS/ 10 ML VIAL ONE ×2 (06:59→07:16)
[2020-08-16] MEDS ORDERED: Fentanyl 100 MCG/2 ML VIAL ONE (07:15)
[2020-08-16] MEDS ORDERED: Dexamethasone 20 MG/5 ML VIAL ONE (07:25)
[2020-08-16] MEDS ORDERED: Lidocaine 1% PF 5 ML VIAL ONE (07:25)
[2020-08-16] MEDS ORDERED: Rocuronium Bromide 10 MG/ML (10ML VIAL) ONE (07:25)
[2020-08-16] MEDS ORDERED: PHENYLEPHRINE-NS 100 MCG/ML 10 ML SYRINGE ONE (07:25)
[2020-08-16] MEDS ORDERED: PROPOFOL 200 MG/20 ML VIAL ONE (07:25)
[2020-08-16] MEDS ORDERED: SUGAMMADEX SODIUM 200 MG/2 ML VIAL ONE (07:46)
[2020-08-16] MEDS ORDERED: Phenylephrine 10 MG/ML VIAL ONE (08:15)
[2020-08-16] MEDS ORDERED: Heparin 25,000 units/D5W 500 ML ONE (08:24)
[2020-08-16] MEDS ORDERED: Protamine Sulfate 50 MG/5 ML VIAL ONE ×2 (09:20→09:56)
[2020-08-16] MEDS ORDERED: Acetaminophen 500 MG TAB ONE (11:08)
[2020-08-16] MEDS ORDERED: Ondansetron PF 4 MG/2 ML Vial ONE (11:24)
== END 2020-08-16 15:22 | disposition home or self-care (01) ==
LOC: CCL 05:55
PROVIDERS: ATTEND Internal Medicine Cardiovascular Disease
PROC: 02K83ZZ Map Conduction Mechanism, Percutaneous Approach (ICD-10-PCS; principal; 2020-08-16)
PROC: B246ZZZ Ultrasonography of Right and Left Heart (ICD-10-PCS; principal; 2020-08-16)
PROC: 02583ZZ Destruction of Conduction Mechanism, Percutaneous Approach (ICD-10-PCS; principal; 2020-08-16)
DX: I48.0 Paroxysmal atrial fibrillation (principal); I48.3 Typical atrial flutter; I50.20 Unspecified systolic (congestive) heart failure; I87.1 Compression of vein; Z79.01 Long term (current) use of anticoagulants; Z79.899 Other long term (current) drug therapy
CPT/HCPCS: 76942; 85347; 93005; 93010; 93312; 93613; 93622; 93656; 93657; 93662; C1730; C1731; C1732; C1753; C1894; C2630; J1100; J1644; J2370; J2405; J2704; J2720; J3010

== ENCOUNTER 2021-02-15 15:23 | Outpatient (CLI) | payer BC, OTHER | END 2021-02-15 15:24 | disposition home or self-care (01) | LOC: BICMAMMO 15:23 | PROVIDERS: ATTEND Family Medicine | DX: Z12.31 Encounter for screening mammogram for malignant neoplasm of breast (principal) | CPT/HCPCS: 77063; 77067 ==

== ENCOUNTER 2021-03-28 07:21 | Outpatient (CLI) | payer BC, OTHER | END 2021-03-28 07:22 | disposition home or self-care (01) | LOC: BICULT 07:21 | PROVIDERS: ATTEND Physician Assistant Medical | DX: K21.00 Gastro-esophageal reflux disease with esophagitis, without bleeding (principal); K44.9 Diaphragmatic hernia without obstruction or gangrene; K59.00 Constipation, unspecified; R10.11 Right upper quadrant pain; N28.9 Disorder of kidney and ureter, unspecified | CPT/HCPCS: 76700 ==

== ENCOUNTER 2022-01-30 15:32 | Outpatient (CLI) | payer BC, OTHER | END 2022-01-30 15:33 | disposition home or self-care (01) | LOC: BICULT 15:32 | PROVIDERS: ATTEND Family Medicine | DX: D17.71 Benign lipomatous neoplasm of kidney (principal) | CPT/HCPCS: 76770 ==

== ENCOUNTER 2022-02-22 09:18 | Observation (INO) | payer BC, OTHER ==
[2022-02-22 09:57] LABS: ALT (SGPT) 16 U/L (8-55); AST (SGOT) 18 U/L (5-34); Albumin 4.3 g/dL (3.4-4.8); Alkaline Phosphatase 77 U/L (40-110); Anion Gap 14 mmol/L (10-20); BUN (Urea Nitrogen) 13 mg/dL (9.8-20.1); Bilirubin, Total 0.6 mg/dL (0.2-1.2); Calc. Creatinine Clearance 0 mL/min (70-130); Calcium 9.8 mg/dL (7.8-10.44); Carbon Dioxide 23 mmol/L (23-31); Chloride 105 mmol/L (98-107); Estimated GFR 65; Globulin 3.3 g/dL (2.4-3.5); Glucose 107 mg/dL (80-115); Potassium 4.1 mmol/L (3.5-5.1); Protein, Total 7.6 g/dL (5.8-8.1); Sodium 138 mmol/L (136-145)
[2022-02-22 10:04] LABS: #Eosinphils 0.2 thou/uL (0.0-0.7); #Lymphocytes 1.8 thou/uL (1.20-3.40); #Monocytes 0.4 thou/uL (0.11-0.59); #Neutrophils 1.9 thou/uL (1.40-6.50); %Basophils 0.9 % (0.0-1.0); %Eosinophils 5.4 % (0.0-10.0); %Lymphocytes 40.8 % (21.0-51.0); %Monocytes 9.4 % (0.0-10.0); %Neutrophils 43.5 % (42.0-75.0); Hemoglobin 13.8 g/dL (12.0-16.0); Mean Corpuscular HGB CONC 32.7 g/dL (32.0-36.0); Mean Corpuscular Hemoglobin 30.2 pg (27.0-31.0); Mean Corpuscular Volume 92.4 fL (78.0-98.0); Mean Platelet Volume 7.8 fL (7.4-10.4); Platelet Count 205 thou/uL (130-400); RBC Distribution Width 11.2 % (11.5-14.5); Red Blood Cell (RBC) Count 4.57 mill/uL (4.20-5.40); White Blood Cell (WBC) Count 4.3 thou/uL (4.8-10.8)
[2022-02-22] MEDS ORDERED: Nitroglycerin 0.4 MG TAB (25 Tab Bottle) SL PRN (11:25)
[2022-02-22] MEDS ORDERED: Ondansetron ODT 4 MG TAB PO PRN (11:29)
[2022-02-22] MEDS ORDERED: Ondansetron PF 4 MG/2 ML Vial IVP PRN (11:29)
[2022-02-22] MEDS ORDERED: Aspirin Chewable 81 MG TAB ONE (11:42)
[2022-02-22 13:32] LABS: Troponin I Less than 0.010 ng/mL (< 0.028)
[2022-02-22 14:15] VITALS: BMI 23.0
[2022-02-22 17:56] LABS: Troponin I 0.011 ng/mL (< 0.028)
[2022-02-22] MEDS: Calcium Carbonate + Vit D 250 MG TAB PO SCH (20:34)
[2022-02-22] MEDS: Apixaban 5 MG TAB PO SCH (20:34)
[2022-02-22] MEDS: Dronedarone HCl 400 MG TAB PO SCH (20:34)
[2022-02-23 05:23] LABS: #Basophils 0.1 thou/uL (0.0-0.2); #Eosinphils 0.2 thou/uL (0.0-0.7); #Lymphocytes 1.5 thou/uL (1.20-3.40); #Monocytes 0.5 thou/uL (0.11-0.59); #Neutrophils 2.1 thou/uL (1.40-6.50); %Basophils 1.3 % (0.0-1.0); %Eosinophils 5.1 % (0.0-10.0); %Lymphocytes 34.3 % (21.0-51.0); %Monocytes 12.1 % (0.0-10.0); %Neutrophils 47.3 % (42.0-75.0); Hemoglobin 13.5 g/dL (12.0-16.0); Mean Corpuscular HGB CONC 32.2 g/dL (32.0-36.0); Mean Corpuscular Hemoglobin 29.8 pg (27.0-31.0); Mean Corpuscular Volume 92.5 fL (78.0-98.0); Mean Platelet Volume 7.8 fL (7.4-10.4); Platelet Count 191 thou/uL (130-400); RBC Distribution Width 11.4 % (11.5-14.5); Red Blood Cell (RBC) Count 4.54 mill/uL (4.20-5.40); White Blood Cell (WBC) Count 4.5 thou/uL (4.8-10.8)
[2022-02-23 06:15] LABS: ALT (SGPT) 14 U/L (8-55); AST (SGOT) 20 U/L (5-34); Albumin 4.1 g/dL (3.4-4.8); Alkaline Phosphatase 69 U/L (40-110); Anion Gap 14 mmol/L (10-20); BUN (Urea Nitrogen) 14 mg/dL (9.8-20.1); Bilirubin, Total 0.5 mg/dL (0.2-1.2); Calc. Creatinine Clearance 59 mL/min (70-130); Calcium 10.1 mg/dL (7.8-10.44); Carbon Dioxide 26 mmol/L (23-31); Cardiac Risk 2.6 (Less than 4.5); Chloride 105 mmol/L (98-107); Cholesterol 183 mg/dl (< 200 Desired); Estimated GFR 54; Globulin 3.5 g/dL (2.4-3.5); Glucose 88 mg/dL (80-115); HDL Cholesterol 70 mg/dL (>60 Neg Risk); LDL Cholesterol, Calculated 94 mg/dL; Potassium 4.5 mmol/L (3.5-5.1); Protein, Total 7.6 g/dL (5.8-8.1); Sodium 140 mmol/L (136-145); Triglycerides 95 mg/dL (Less than 150)
[2022-02-23] MEDS ORDERED: Sodium Chloride 0.9% 1,000 ML IV SCH (08:00)
[2022-02-23] MEDS ORDERED: Non-Formulary Item 1 EACH (Cider Vinegar [Apple Cider Vinegar] 500 MG Tablet) PO SCH (09:00)
[2022-02-23] MEDS ORDERED: FLU VACC QS2022-23(6MOS UP)/PF 60 MCG/0.5 ML SYRINGE IM ONE (09:00)
[2022-02-23] MEDS: Multivit, Therapeutic 1 TAB PO SCH (09:05)
[2022-02-23] MEDS: Dronedarone HCl 400 MG TAB PO SCH ×2 (09:05→21:02)
[2022-02-23] MEDS: Aspirin Chewable 81 MG TAB PO SCH (09:05)
[2022-02-23] MEDS: Acetaminophen 325 MG TAB PO PRN (09:15)
[2022-02-23] MEDS: Apixaban 5 MG TAB PO SCH ×2 (12:51→21:02)
[2022-02-23] MEDS: Calcium Carbonate + Vit D 250 MG TAB PO SCH (21:02)
[2022-02-24 05:03] LABS: #Eosinphils 0.3 thou/uL (0.0-0.7); #Lymphocytes 1.7 thou/uL (1.20-3.40); #Monocytes 0.5 thou/uL (0.11-0.59); #Neutrophils 2.2 thou/uL (1.40-6.50); %Basophils 0.4 % (0.0-1.0); %Eosinophils 6.6 % (0.0-10.0); %Lymphocytes 35.9 % (21.0-51.0); %Monocytes 10.5 % (0.0-10.0); %Neutrophils 46.7 % (42.0-75.0); Hemoglobin 13.1 g/dL (12.0-16.0); Mean Corpuscular HGB CONC 32.7 g/dL (32.0-36.0); Mean Corpuscular Hemoglobin 30.1 pg (27.0-31.0); Mean Corpuscular Volume 92.1 fL (78.0-98.0); Mean Platelet Volume 7.5 fL (7.4-10.4); Platelet Count 196 thou/uL (130-400); RBC Distribution Width 11.2 % (11.5-14.5); Red Blood Cell (RBC) Count 4.36 mill/uL (4.20-5.40); White Blood Cell (WBC) Count 4.7 thou/uL (4.8-10.8)
[2022-02-24 05:21] LABS: ALT (SGPT) 15 U/L (8-55); AST (SGOT) 16 U/L (5-34); Albumin 3.9 g/dL (3.4-4.8); Alkaline Phosphatase 67 U/L (40-110); Anion Gap 11 mmol/L (10-20); BUN (Urea Nitrogen) 14 mg/dL (9.8-20.1); Bilirubin, Total 0.6 mg/dL (0.2-1.2); Calc. Creatinine Clearance 61 mL/min (70-130); Calcium 9.3 mg/dL (7.8-10.44); Carbon Dioxide 25 mmol/L (23-31); Chloride 107 mmol/L (98-107); Estimated GFR 57; Globulin 3.2 g/dL (2.4-3.5); Glucose 94 mg/dL (80-115); Potassium 4.1 mmol/L (3.5-5.1); Protein, Total 7.1 g/dL (5.8-8.1); Sodium 139 mmol/L (136-145)
[2022-02-24] MEDS ORDERED: Regadenoson 0.4 MG/5 ML SYRINGE ONE (08:32)
[2022-02-24] MEDS: Multivit, Therapeutic 1 TAB PO SCH (08:34)
[2022-02-24] MEDS: Acetaminophen 325 MG TAB PO PRN (08:34)
[2022-02-24] MEDS: Aspirin Chewable 81 MG TAB PO SCH (08:34)
[2022-02-24] MEDS: Dronedarone HCl 400 MG TAB PO SCH (08:34)
[2022-02-24] MEDS: Apixaban 5 MG TAB PO SCH (08:35)
[2022-02-24 11:30] VITALS: BP 131/73; TEMP 98
== END 2022-02-24 12:37 | disposition home or self-care (01) ==
LOC: ERS 09:18 → 2SW 11:25
PROVIDERS: ADMIT Internal Medicine; ATTEND Internal Medicine
DX: R07.89 Other chest pain (principal); I48.3 Typical atrial flutter; I48.0 Paroxysmal atrial fibrillation; I73.9 Peripheral vascular disease, unspecified; I10 Essential (primary) hypertension; K21.9 Gastro-esophageal reflux disease without esophagitis; Z86.718 Personal history of other venous thrombosis and embolism; Z79.01 Long term (current) use of anticoagulants; Z79.899 Other long term (current) drug therapy; Z20.822 Contact with and (suspected) exposure to COVID-19
CPT/HCPCS: 36415; 71045; 78452; 80053; 80061; 83735; 84443; 84484; 85025; 93005; 93017; 94760; A9500; G0378; J2785; J7050; U0003; U0005

== ENCOUNTER 2022-03-07 14:34 | Outpatient (CLI) | payer BC | END 2022-03-07 14:35 | disposition home or self-care (01) | LOC: BICMAMMO 14:34 | PROVIDERS: ATTEND Family Medicine | DX: Z12.31 Encounter for screening mammogram for malignant neoplasm of breast (principal) | CPT/HCPCS: 77063; 77067 ==